=== PATIENT | male | born 1980 | race Caucasian/White ===

== ENCOUNTER 2018-01-05 19:05 | Emergency (ER) | payer MEDICAID ==
[~2018-01-05] VITALS: Ht 175.3 cm; Wt 57.3 kg
[2018-01-05 19:05] VITALS: BP 119/83
[2018-01-05] MEDS ORDERED: LIDOcaine 1% 30ml preserv. free vial SQ STA (19:23)
[2018-01-05] MEDS ORDERED: CLIN150C2 PO (20:13)
== END 2018-01-05 20:31 | disposition home or self-care (01) ==
LOC: ER 19:05
DX: L02.511 Cutaneous abscess of right hand (principal); F12.90 Cannabis use, unspecified, uncomplicated; F11.90 Opioid use, unspecified, uncomplicated; Z88.5 Allergy status to narcotic agent; Z88.8 Allergy status to other drugs, medicaments and biological substances; Z60.2 Problems related to living alone; Z59.0 Homelessness; Z56.0 Unemployment, unspecified
CPT/HCPCS: 10060; 99283; A6449; J3490

== ENCOUNTER 2018-01-14 11:21 | Emergency (ER) | payer MEDICAID ==
[~2018-01-14] VITALS: Ht 177.8 cm; Wt 59.0 kg
[~2018-01-14 11:21] MED LIST: CLIN150C2 PO
[2018-01-14] MEDS ORDERED: DIAZ10TA PO (12:40)
[2018-01-14 13:12] VITALS: BP 132/54
== END 2018-01-14 13:13 | disposition home or self-care (01) ==
LOC: ER 11:22
DX: F19.939 Other psychoactive substance use, unspecified with withdrawal, unspecified (principal); J45.909 Unspecified asthma, uncomplicated; G89.29 Other chronic pain; F12.90 Cannabis use, unspecified, uncomplicated; F11.90 Opioid use, unspecified, uncomplicated; Z88.5 Allergy status to narcotic agent; Z88.6 Allergy status to analgesic agent; Z79.899 Other long term (current) drug therapy; Z56.0 Unemployment, unspecified; Z59.0 Homelessness; Z60.2 Problems related to living alone
CPT/HCPCS: 99283

== ENCOUNTER 2018-02-01 12:06 | Emergency (ER) | payer MEDICAID ==
[~2018-02-01] VITALS: Ht 177.8 cm; Wt 54.0 kg
[~2018-02-01 12:06] MED LIST changes: +DIAZ10TA PO
[2018-02-01] MEDS ORDERED: piperacillin/tazo 3.375gm/50ml 50 ML IV ONE (12:45)
[2018-02-01] MEDS ORDERED: ketorolac trometh. 30mg/ml inj. IV ONE (12:45)
[2018-02-01] MEDS ORDERED: normal saline 1000ML IV soln IV ONE (12:45)
[2018-02-01 13:16] LABS: BASOPHILS % (AUTO) 0.1 % (0-1); EOSINOPHILS # (AUTO) 0.3 X10'3 (0-0.9); EOSINOPHILS % (AUTO) 2.6 % (0-6); HEMATOCRIT 37.4 % (42.0-52.0); HEMOGLOBIN 12.6 g/dl (14.0-17.9); LYMPHOCYTES # (AUTO) 1.6 X10'3 (1.1-4.8); LYMPHOCYTES % (AUTO) 13.3 % (21-51); MEAN CORPUSCULAR HEMOGLOBIN 31.7 PG (27.0-31.0); MEAN CORPUSCULAR HGB CONC 33.8 % (33.0-36.5); MEAN PLATELET VOLUME 6.8 FL (7.4-10.4); MONOCYTES # (AUTO) 0.7 X10'3 (0-0.9); NEUTROPHILS # (AUTO) 9.4 X10'3 (1.8-7.7); PLATELET COUNT 275 X10'3 (140-440); RED BLOOD COUNT 3.98 X10'6 (4.70-6.10); RED CELL DISTRIBUTION WIDTH 13.9 % (11.5-14.5)
[2018-02-01 13:26] LABS: INR 0.9 INR; PARTIAL THROMBOPLASTIN TIME 28 SECONDS (22-32); PROTHROMBIN TIME 9.7 SECONDS (9.0-12.0)
[2018-02-01 13:32] LABS: ALANINE AMINOTRANSFERASE 12 U/L (12-78); ALBUMIN 3.5 G/DL (3.4-5.0); ALBUMIN/GLOBULIN RATIO 0.9 (1.1-1.5); ALKALINE PHOSPHATASE 141 IU/L (46-116); ANION GAP 6 (8-16); ASPARTATE AMINO TRANSFERASE 13 U/L (10-37); BILIRUBIN,TOTAL 0.4 MG/DL (0.1-1.0); BLOOD UREA NITROGEN 17 MG/DL (7-18); BUN/CREATININE RATIO 18.3 (5.4-32.0); CALCIUM 9.1 MG/DL (8.5-10.1); CHLORIDE 99 MMOL/L (99-107); CREATININE 0.93 MG/DL (0.60-1.10); GLUCOSE 96 MG/DL (70-104); MAGNESIUM 2.1 MG/DL (1.5-2.4); POTASSIUM 4.4 MMOL/L (3.5-5.1); SODIUM 134 MMOL/L (135-145); TOTAL CARBON DIOXIDE 28.9 MMOL/L (24-32); TOTAL PROTEIN 7.3 G/DL (6.4-8.2); eGFR > 90 ML/MIN
[2018-02-01 13:42] LABS: CLARITY,URINE CLEAR (Clear); COLOR,URINE YELLOW (Yellow); GLUCOSE, URINE NEGATIVE (Neg); KETONES,URINE TRACE mg/dl (Neg); LEUKOCYTE ESTERASE ,URINE NEGATIVE (Neg); NITRITES, URINE NEGATIVE (Neg); OCCULT BLOOD,URINE NEGATIVE (Neg); PH,URINE 5.5 (4.8-8.0); PROTEIN,URINE NEGATIVE (Neg); UROBILINOGEN,URINE 0.2 E.U/dL (0.2-1.0)
[2018-02-01 13:47] LABS: UA COLLECTION TYPE VOIDED
[2018-02-01] MEDS ORDERED: SULF1TAB49 PO (14:30)
[2018-02-01] MEDS ORDERED: DOXY100C43 PO (14:30)
[2018-02-01 15:19] VITALS: BP 114/70
== END 2018-02-01 15:05 | disposition home or self-care (01) ==
LOC: ER 12:07
DX: L02.414 Cutaneous abscess of left upper limb (principal); R10.31 Right lower quadrant pain; R10.32 Left lower quadrant pain; R19.7 Diarrhea, unspecified; F19.10 Other psychoactive substance abuse, uncomplicated; J45.909 Unspecified asthma, uncomplicated; G89.29 Other chronic pain; F17.200 Nicotine dependence, unspecified, uncomplicated; F12.90 Cannabis use, unspecified, uncomplicated; F11.90 Opioid use, unspecified, uncomplicated; Z56.0 Unemployment, unspecified; Z60.2 Problems related to living alone; Z59.0 Homelessness; Z88.5 Allergy status to narcotic agent; Z88.8 Allergy status to other drugs, medicaments and biological substances; Z79.899 Other long term (current) drug therapy
CPT/HCPCS: 36415; 71045; 80053; 81003; 83605; 83735; 84145; 85025; 85610; 85730; 87040; 93005; 96361; 96365; 96375; 99285; J1885; J2543; J7030

== ENCOUNTER 2018-02-11 09:09 | Emergency (ER) | payer MEDICAID ==
[~2018-02-11] VITALS: Ht 177.8 cm; Wt 55.9 kg
[~2018-02-11 09:09] MED LIST changes: -CLIN150C2 PO; +DOXY100C43 PO; +SULF1TAB49 PO
[2018-02-11 10:04] LABS: BASOPHILS % (AUTO) 0.1 % (0-1); EOSINOPHILS % (AUTO) 0.2 % (0-6); HEMATOCRIT 44.9 % (42.0-52.0); HEMOGLOBIN 15.2 g/dl (14.0-17.9); LYMPHOCYTES % (AUTO) 12.4 % (21-51); MEAN CORPUSCULAR HEMOGLOBIN 31.5 PG (27.0-31.0); MEAN CORPUSCULAR HGB CONC 33.9 % (33.0-36.5); MEAN CORPUSCULAR VOLUME 92.9 FL (78-98); MEAN PLATELET VOLUME 6.3 FL (7.4-10.4); MONOCYTES # (AUTO) 0.4 X10'3 (0-0.9); MONOCYTES % (AUTO) 5.4 % (2-12); NEUTROPHILS # (AUTO) 6.3 X10'3 (1.8-7.7); NEUTROPHILS % (AUTO) 81.9 % (42-75); PLATELET COUNT 387 X10'3 (140-440); RED BLOOD COUNT 4.83 X10'6 (4.70-6.10); RED CELL DISTRIBUTION WIDTH 12.8 % (11.5-14.5); WHITE BLOOD COUNT 7.7 X10'3 (4.5-11.0)
[2018-02-11 10:19] LABS: ALANINE AMINOTRANSFERASE 32 U/L (12-78); ALBUMIN 4.6 G/DL (3.4-5.0); ALKALINE PHOSPHATASE 152 IU/L (46-116); ANION GAP 12 (8-16); ASPARTATE AMINO TRANSFERASE 29 U/L (10-37); BILIRUBIN,TOTAL 0.3 MG/DL (0.1-1.0); BLOOD UREA NITROGEN 29 MG/DL (7-18); BUN/CREATININE RATIO 19.6 (5.4-32.0); CALCIUM 10.1 MG/DL (8.5-10.1); CHLORIDE 94 MMOL/L (99-107); CREATININE 1.48 MG/DL (0.60-1.10); GLUCOSE 143 MG/DL (70-104); POTASSIUM 4.2 MMOL/L (3.5-5.1); SODIUM 132 MMOL/L (135-145); TOTAL CARBON DIOXIDE 25.7 MMOL/L (24-32); TOTAL PROTEIN 9.4 G/DL (6.4-8.2); eGFR 54 ML/MIN
[2018-02-11] MEDS ORDERED: DOXY100C43 PO (10:22)
[2018-02-11] MEDS ORDERED: SULF1TAB49 PO (10:22)
[2018-02-11] MEDS ORDERED: normal saline 1000ML IV soln IVB ONE (10:25)
[2018-02-11 10:33] LABS: CLARITY,URINE SLIGHTLY CLOUDY (Clear); GLUCOSE, URINE NEGATIVE (Neg); KETONES,URINE TRACE mg/dl (Neg); LEUKOCYTE ESTERASE ,URINE NEGATIVE (Neg); NITRITES, URINE NEGATIVE (Neg); OCCULT BLOOD,URINE NEGATIVE (Neg); PROTEIN,URINE TRACE mg/dl (Neg); UROBILINOGEN,URINE 0.2 E.U/dL (0.2-1.0)
[2018-02-11 10:39] LABS: UA COLLECTION TYPE URINAL
[2018-02-11 10:40] LABS: COLOR,URINE DARK YELLOW (Yellow)
[2018-02-11] MEDS ORDERED: ONDA4TAB6 PO (10:50)
[2018-02-11 10:52] LABS: BACTERIA,URINE NONE SEEN /HPF (Neg); MUCUS STRANDS FEW /LPF (Neg); RBC,URINE NONE SEEN /HPF (0-2); SQUAMOUS EPITHELIAL CELL,UR FEW /LPF (FEW); WBC,URINE 0-4 /HPF (0-4)
[2018-02-11 10:53] LABS: HYALINE CASTS 0-3 /LPF (NEGATIVE)
[2018-02-11] MEDS ORDERED: ondansetron/PF 4mg/2ml inj IV ONE (11:05)
[2018-02-11 11:42] VITALS: BP 122/84
== END 2018-02-11 11:44 | disposition home or self-care (01) ==
LOC: ER 09:09
DX: L02.414 Cutaneous abscess of left upper limb (principal); R11.2 Nausea with vomiting, unspecified; F19.10 Other psychoactive substance abuse, uncomplicated; J45.909 Unspecified asthma, uncomplicated; G89.29 Other chronic pain; F12.90 Cannabis use, unspecified, uncomplicated; F11.90 Opioid use, unspecified, uncomplicated; Z88.5 Allergy status to narcotic agent; Z88.6 Allergy status to analgesic agent; Z79.899 Other long term (current) drug therapy; Z60.2 Problems related to living alone; Z56.0 Unemployment, unspecified; Z59.0 Homelessness
CPT/HCPCS: 36415; 80053; 81001; 83605; 84145; 85025; 87040; 96374; 96375; 99284; J2405; J7030

== ENCOUNTER 2018-06-15 11:38 | Emergency (ER) | payer MEDICAID ==
[~2018-06-15] VITALS: Ht 177.8 cm; Wt 59.5 kg
[~2018-06-15 11:38] MED LIST changes: -DOXY100C43 PO; +ONDA4TAB6 PO; +ONDA8TAB6 PO; -SULF1TAB49 PO
[2018-06-15 12:24] VITALS: BP 133/77
[2018-06-15] MEDS ORDERED: piperacillin/tazo 3.375gm/50ml 50 ML IV ONE (14:10)
--- NOTE | 2018-06-15 14:13 | NUR ---
wound outlined measured at 11.5 cm wide 13 cm long
[2018-06-15] MEDS ORDERED: morphine 4 MG/ML inj SYRINge IV ONE (14:55)
[2018-06-15] MEDS ORDERED: DOXY100C43 PO (14:59)
[2018-06-15] MEDS ORDERED: SULF1TAB49 PO (14:59)
== END 2018-06-15 15:43 | disposition home or self-care (01) ==
LOC: ER 11:39
DX: L03.113 Cellulitis of right upper limb (principal); J45.909 Unspecified asthma, uncomplicated; G89.29 Other chronic pain; F12.90 Cannabis use, unspecified, uncomplicated; F11.90 Opioid use, unspecified, uncomplicated; Z88.5 Allergy status to narcotic agent; Z88.6 Allergy status to analgesic agent; Z79.2 Long term (current) use of antibiotics; Z79.899 Other long term (current) drug therapy; Z60.2 Problems related to living alone; Z56.0 Unemployment, unspecified; Z59.0 Homelessness
CPT/HCPCS: 96365; 96375; 99284; J2270; J2543

== ENCOUNTER 2019-03-16 14:51 | Emergency (ER) | payer MEDICAID ==
[~2019-03-16] VITALS: Ht 177.8 cm; Wt 63.6 kg
[2019-03-16] MEDS ORDERED: haloperidol lactate 5mg/ml inj IM ONE (15:55)
[2019-03-16] MEDS ORDERED: LORazepam 2 mg/ml vial IV ONE (15:55)
[2019-03-16] MEDS ORDERED: normal saline 1000ML IV soln IVB ONE ×2 (15:55→16:55)
[2019-03-16 16:33] LABS: BASOPHILS % (AUTO) 0 % (0-1); EOSINOPHILS % (AUTO) 0 % (0-6); HEMATOCRIT 45.1 % (42.0-52.0); HEMOGLOBIN 15.4 g/dl (14.0-17.9); LYMPHOCYTES # (AUTO) 0.4 X10'3 (1.1-4.8); LYMPHOCYTES % (AUTO) 4.6 % (21-51); MEAN CORPUSCULAR HGB CONC 34.1 g/dL (33.0-36.5); MEAN PLATELET VOLUME 7.4 FL (7.4-10.4); MONOCYTES # (AUTO) 0.2 X10'3 (0-0.9); MONOCYTES % (AUTO) 2.5 % (2-12); NEUTROPHILS # (AUTO) 8.5 X10'3 (1.8-7.7); NEUTROPHILS % (AUTO) 92.9 % (42-75); PLATELET COUNT 347 X10'3 (140-440); RED CELL DISTRIBUTION WIDTH 12.9 % (11.5-14.5); WHITE BLOOD COUNT 9.2 X10'3 (4.5-11.0)
[2019-03-16 16:34] LABS: ALANINE AMINOTRANSFERASE 14 U/L (12-78); ALBUMIN 5.2 G/DL (3.4-5.0); ALBUMIN/GLOBULIN RATIO 1.2 (1.1-1.5); ALKALINE PHOSPHATASE 126 IU/L (46-116); ANION GAP 14 (8-16); ASPARTATE AMINO TRANSFERASE 11 U/L (10-37); BILIRUBIN,TOTAL 0.5 MG/DL (0.1-1.0); BLOOD UREA NITROGEN 28 MG/DL (7-18); BUN/CREATININE RATIO 27.5 (5.4-32.0); CALCIUM 10.3 MG/DL (8.5-10.1); CHLORIDE 100 MMOL/L (99-107); CREATININE 1.02 MG/DL (0.60-1.10); GLUCOSE 136 MG/DL (70-104); POTASSIUM 4.7 MMOL/L (3.5-5.1); SODIUM 139 MMOL/L (135-145); TOTAL CARBON DIOXIDE 25.5 MMOL/L (24-32); TOTAL PROTEIN 9.6 G/DL (6.4-8.2); eGFR 83 ML/MIN
[2019-03-16] MEDS ORDERED: NALO4SPR NAS (17:58)
[2019-03-16] MEDS ORDERED: ONDA4TAB6 PO (17:58)
[2019-03-16 18:14] VITALS: BP 120/62
== END 2019-03-16 18:16 | disposition home or self-care (01) ==
LOC: ER 14:52
DX: R11.2 Nausea with vomiting, unspecified (principal); R06.02 Shortness of breath; R10.84 Generalized abdominal pain; F15.10 Other stimulant abuse, uncomplicated; F11.10 Opioid abuse, uncomplicated; J45.909 Unspecified asthma, uncomplicated; G89.29 Other chronic pain; F41.9 Anxiety disorder, unspecified; F32.9 Major depressive disorder, single episode, unspecified; Z56.0 Unemployment, unspecified; Z59.0 Homelessness; Z60.2 Problems related to living alone; Z88.5 Allergy status to narcotic agent; Z88.6 Allergy status to analgesic agent; Z79.899 Other long term (current) drug therapy
CPT/HCPCS: 36415; 80053; 85025; 96361; 96372; 96374; 99283; J1630; J2060; J7030

== ENCOUNTER 2019-06-07 10:25 | Emergency (ER) | payer MEDICAID ==
[~2019-06-07] VITALS: Ht 177.8 cm; Wt 62.0 kg
[~2019-06-07 10:25] MED LIST changes: +LIDOcaine 1% 30ml preserv. free vial ONE; +NALO4SPR NAS
[2019-06-07 10:45] VITALS: BP 143/89
[2019-06-07] MEDS ORDERED: SULF1TAB49 PO (11:48)
[2019-06-07] MEDS ORDERED: CEPH-572 PO (11:48)
--- NOTE | 2019-06-07 12:12 | NUR ---
MIGUEL Corral at bedside for I&D procedure.
[2019-06-07] MEDS ORDERED: TETanus/Pertussis (Acell)/Diphther VAC/PF (Tdap-Adult) 0.5ml syringe IMVAC ONE (12:15)
== END 2019-06-07 12:56 | disposition home or self-care (01) ==
LOC: ER 10:25
DX: L02.414 Cutaneous abscess of left upper limb (principal); F19.10 Other psychoactive substance abuse, uncomplicated; J45.909 Unspecified asthma, uncomplicated; G89.29 Other chronic pain; F41.9 Anxiety disorder, unspecified; F32.9 Major depressive disorder, single episode, unspecified; F12.90 Cannabis use, unspecified, uncomplicated; F11.90 Opioid use, unspecified, uncomplicated; Z60.2 Problems related to living alone; Z56.0 Unemployment, unspecified; Z59.0 Homelessness; Z88.5 Allergy status to narcotic agent; Z88.6 Allergy status to analgesic agent; Z79.899 Other long term (current) drug therapy
CPT/HCPCS: 90471; 90715; 99283; J2001

== ENCOUNTER 2019-10-26 18:09 | Emergency (ER) | payer MEDICAID ==
[~2019-10-26] VITALS: Ht 175.3 cm; Wt 60.3 kg
[~2019-10-26 18:09] MED LIST changes: -LIDOcaine 1% 30ml preserv. free vial ONE
[2019-10-26] MEDS ORDERED: SULF1TAB49 PO (19:08)
[2019-10-26] MEDS ORDERED: CEPH500C5 PO (19:08)
[2019-10-26 19:20] VITALS: BP 158/96
== END 2019-10-26 19:21 | disposition home or self-care (01) ==
LOC: ER 18:09
DX: L03.221 Cellulitis of neck (principal); M54.2 Cervicalgia; R22.1 Localized swelling, mass and lump, neck; R11.2 Nausea with vomiting, unspecified; J45.909 Unspecified asthma, uncomplicated; G89.29 Other chronic pain; F41.9 Anxiety disorder, unspecified; F32.9 Major depressive disorder, single episode, unspecified; F12.90 Cannabis use, unspecified, uncomplicated; F11.90 Opioid use, unspecified, uncomplicated; Z60.2 Problems related to living alone; Z56.0 Unemployment, unspecified; Z59.0 Homelessness
CPT/HCPCS: 99283

== ENCOUNTER 2021-05-31 10:53 | Emergency (ER) | payer MEDICAID ==
[~2021-05-31] VITALS: Ht 175.3 cm; Wt 61.4 kg
[2021-05-31 11:12] VITALS: BP 149/90
== END 2021-05-31 11:30 | disposition home or self-care (01) ==
LOC: ER 11:06
DX: S90.822A Blister (nonthermal), left foot, initial encounter (principal); S90.821A Blister (nonthermal), right foot, initial encounter; J45.909 Unspecified asthma, uncomplicated; F41.9 Anxiety disorder, unspecified; F32.9 Major depressive disorder, single episode, unspecified; G89.29 Other chronic pain; M54.9 Dorsalgia, unspecified; F12.10 Cannabis abuse, uncomplicated; F11.10 Opioid abuse, uncomplicated; Z59.00 Homelessness unspecified; Z56.0 Unemployment, unspecified
CPT/HCPCS: 99281

== ENCOUNTER 2021-06-17 20:32 | Emergency (ER) | payer MEDICAID ==
[~2021-06-17] VITALS: Ht 175.3 cm; Wt 54.9 kg
[2021-06-17 22:08] VITALS: BP 143/94
[2021-06-18] MEDS ORDERED: buprenorphine/naloxone 8MG-2MG SUBlingual film SL ONE (05:25)
== END 2021-06-18 06:14 | disposition home or self-care (01) ==
LOC: ER 20:33
DX: Z02.89 Encounter for other administrative examinations (principal); J45.909 Unspecified asthma, uncomplicated; G89.29 Other chronic pain; F41.9 Anxiety disorder, unspecified; F32.9 Major depressive disorder, single episode, unspecified; F12.90 Cannabis use, unspecified, uncomplicated; Z79.891 Long term (current) use of opiate analgesic; Z60.2 Problems related to living alone; Z59.00 Homelessness unspecified; Z56.0 Unemployment, unspecified; Z79.899 Other long term (current) drug therapy
CPT/HCPCS: 99283

== ENCOUNTER 2021-06-28 13:30 | Emergency (ER) | payer MEDICAID ==
[~2021-06-28] VITALS: Ht 175.3 cm; Wt 63.6 kg
[2021-06-28 13:36] VITALS: BP 151/89
== END 2021-06-28 14:49 ==
LOC: ER 13:31
DX: S50.12XA Contusion of left forearm, initial encounter (principal); J45.909 Unspecified asthma, uncomplicated; G89.29 Other chronic pain; F12.90 Cannabis use, unspecified, uncomplicated; F11.90 Opioid use, unspecified, uncomplicated; Z59.00 Homelessness unspecified; Z56.0 Unemployment, unspecified; W22.8XXA Striking against or struck by other objects, initial encounter; Y93.89 Activity, other specified; Y92.89 Other specified places as the place of occurrence of the external cause; Y99.9 Unspecified external cause status
CPT/HCPCS: 73090; 99283